=== PATIENT | female | born 1975 | race African-American/Black ===

== ENCOUNTER 2019-09-05 23:43 | Emergency (ER) | payer SELFPAY ==
[~2019-09-05] VITALS: Ht 165.1 cm; Wt 87.3 kg
[2019-09-06 00:13] VITALS: BP 132/94
[2019-09-06] MEDS ORDERED: CYCL-331 PO (00:25)
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
== END 2019-09-06 00:45 | disposition home or self-care (01) ==
LOC: ER 23:43
DX: S46.911A Strain of unspecified muscle, fascia and tendon at shoulder and upper arm level, right arm, initial encounter (principal); V49.49XA Driver injured in collision with other motor vehicles in traffic accident, initial encounter; Y93.89 Activity, other specified; Y92.410 Unspecified street and highway as the place of occurrence of the external cause; Y99.8 Other external cause status
CPT/HCPCS: 99283